=== PATIENT | male | born 1945 | race Caucasian/White ===

== ENCOUNTER 2024-01-12 11:39 | Emergency (ER) | payer OTHER ==
[2024-01-12 11:59] VITALS: TEMP 97.7
[2024-01-12] MEDS ORDERED: DUONEB 0.5-3 MG/3 ml Neb IH ONE (12:13)
[2024-01-12] MEDS: DUONEB 0.5-3 MG/3 ml Neb IH ONE (12:13)
--- NOTE | 2024-01-12 12:18 | ERPHSYRPT ---
- History of Present Illness Time Seen by Provider: 01/12/24 11:44 Source: patient, family Exam Limitations: no limitations Patient Subjective Stated Complaint: C/O SOB for months. States [facility] told him today to go to the ER for evaluation. Triage Nursing Assessment: Patient ambulated back to ER. He is alert and oriented. SOB noted with exertion. No cough. Skin tone normal. Trace edema BLE. SIM MIRANDA. Dr. Newell at bedside and assessed lung sounds. Physician History: 78 years old male with history of COPD, hypertension presented in the ER with increasing shortness of breath for the last 2 months. Patient reports having shortness of breath at baseline which is getting worse for the last couple of months initially with exertion and now gets short of breath even while talking. Patient reports he has to rest to catch his breath. Denies any chest tightness pressure or palpitations. No fever chills or cough reported. No history of coronary artery disease or congestive heart failure. Patient reports earlier he was having conversation with [facility] nurse and got really short winded, was recommended to be evaluated in the ER. Allergies/Adverse Reactions: No Known Drug Allergies Allergy (Verified 01/12/24 11:48) Home Medications: Unobtainable 01/12/24 [History] Hx Tetanus, Diphtheria Vaccination/Date Given: Yes Hx Influenza Vaccination/Date Given: Yes Hx Pneumococcal Vaccination/Date Given: Yes Immunizations Up to Date: Yes Travel Risk - International Travel Have you traveled outside of the country in past 3 weeks: No - Emerging Infectious Disease Are you exhibiting symptoms associated with any current EIDs: Yes Symptoms: Shortness of Breath - Review of Systems Constitutional: No Symptoms Eyes: No Symptoms Ears, Nose, & Throat: No Symptoms Respiratory: Dyspnea, Dyspnea on Exertion (GARCIA) Cardiac: No Symptoms Abdominal/Gastrointestinal: No Symptoms Genitourinary Symptoms: No Symptoms Skin: No Symptoms Neurological: No Symptoms Endocrine: No Symptoms Hematologic/Lymphatic: No Symptoms Immunological/Allergic: No Symptoms - Past Medical History Pertinent Past Medical History: Yes Cardiac History: Hypertension Respiratory History: Other Endocrine Medical History: Diabetes Type II History: Other Other Medical History: 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, urinary incontinence at times - Past Surgical History Past Surgical History: Yes Male Surgical History: Vasectomy - Social History Smoking Status: Never smoker Exposure to second hand smoke: No Drug Use: none - Social Determinants of Health Will the patient participate in the screening: Yes Do you worry about a steady place to live?: No Do you have any problems with any of the following?: No known problems In the past 12 months,have you had to go without utilities?: No Transportation Issues: No Has anyone in your support network made you feel unsafe?: No Have you or anyone in your house had to go without enough: No - Nursing Vital Signs Nursing Vital Signs: Initial Vital Signs Temperature 97.7 F 01/12/24 11:39 Pulse Rate 86 01/12/24 11:39 Respiratory Rate 22 01/12/24 11:39 Blood Pressure 176/85 01/12/24 11:39 O2 Sat by Pulse Oximetry 97 01/12/24 11:39 Pain Scale Pain Intensity 0 - Physical Exam General Appearance: no apparent distress, alert Eye Exam: PERRL/EOMI Ears, Nose, Throat Exam: hearing grossly normal, normal pharynx Neck Exam: normal inspection, full range of motion Respiratory Exam: normal breath sounds, lungs clear Cardiovascular/Chest Exam: normal heart sounds, regular rate/rhythm Abdominal/Gastrointestinal Exam: soft, normal bowel sounds, No tenderness Extremity Exam: non-tender, normal range of motion Neurologic Exam: alert, oriented x 3, cooperative, seo marketing specialist II-XII nml as tested Skin Exam: normal color SpO2 Interpretation: normal SpO2: 99 O2 Delivery: Room Air - Course EKG Interpreted by Me: RATE (72), Sinus Rhythm, Left [place] Deviation, NORMAL INTERVALS, Q-wave, Non-specific ST Changes Ordered Tests: Active Orders 24 hr Category Date Time Status Licensing Registration Examiner STAT Care 01/12/24 11:59 Active EKG-ER Only STAT Care 01/12/24 11:58 Active IV Insertion STAT Care 01/12/24 11:58 Active CHEST 1 VIEW (PORTABLE) Stat Exams 01/12/24 11:59 Completed BLOOD CULTURE Stat Lab 01/12/24 13:15 Received CBC W DIFF Stat Lab 01/12/24 12:05 Completed CMP Stat Lab 01/12/24 12:05 Completed D-DIMER QUANTITATIVE Stat Lab 01/12/24 12:05 Completed Lactic Acid Stat Lab 01/12/24 12:05 Completed MAGNESIUM Stat Lab 01/12/24 12:05 Completed NT PRO BNPII Stat Lab 01/12/24 12:05 Completed TROPONIN Q4H Lab 01/12/24 12:05 Completed TROPONIN Q4H Lab 01/12/24 16:00 Ordered TROPONIN Q4H Lab 01/12/24 20:00 Ordered Medication Summary Discontinued Medications Generic Name Dose Route Start Last Admin Trade Name Dione PRN Reason Stop Dose Admin Albuterol/Ipratropium 3 ml 01/12/24 11:58 01/12/24 12:13 Ipratropium/Albuterol Sulfate 3 Ml Ampul.Neb IH 01/12/24 11:59 3 ml STAT ONE Administration Albuterol/Ipratropium Confirm 01/12/24 12:13 Ipratropium/Albuterol Sulfate 3 Ml Ampul.Neb Administered 01/12/24 12:14 Dose 3 ml IH .STK-MED ONE Enoxaparin Sodium 40 mg 01/12/24 15:53 Enoxaparin Sodium 40 Mg/0.4 Ml Syringe SQ 01/12/24 15:54 1XONLY ONE Hydralazine HCl 10 mg 01/12/24 14:37 01/12/24 15:06 Hydralazine Hcl 20 Mg/Ml Vial IV 01/12/24 14:38 10 mg STAT ONE Administration Hydralazine HCl Confirm 01/12/24 15:04 Hydralazine Hcl 20 Mg/Ml Vial Administered 01/12/24 15:05 Dose 20 mg .ROUTE .STK-MED ONE Sodium Chloride 500 mls @ 500 mls/hr 01/12/24 13:30 01/12/24 15:09 Sodium Chloride 0.9% 500 Ml IV 01/12/24 14:29 Infused .Q1H ONE Infusion Sodium Chloride Confirm 01/12/24 13:52 Sodium Chloride 0.9% 500 Ml Administered 01/12/24 13:53 Dose 500 mls @ ud IV .STK-MED ONE Warfarin Sodium 5 mg 01/12/24 13:00 01/12/24 13:36 Warfarin Sodium 5 Mg Tablet PO 01/12/24 13:01 Not Given ONCE ONE Lab/Rad Data: Laboratory Result Diagrams 01/12/24 12:05 01/12/24 12:05 Laboratory Results 01/12/24 01/12/24 01/12/24 Range/Units 12:05 12:05 12:05 WBC (4.23-9.07) x10^3/uL RBC (4.63-6.08) x10^6/uL Hgb (13.7-17.5) g/dL Hct (40.1-51.0) % MCV (79.0-92.2) fL MCH (25.7-32.2) pg MCHC (32.3-36.5) g/dL RDW (11.6-14.4) % Plt Count (163-337) x10^3/uL MPV (9.4-12.4) fL Gran % (34.0-67.9) % Immature Gran % (Auto) (0.001-0.429) % Nucleat RBC Rel Count (0.00-0.2) % Eos # (Auto) (0.04-0.54) x10^3/uL Immature Gran # (Auto) (0.001-0.031) x10^3u/L Absolute Lymphs (auto) (1.32-3.57) x10^3/uL Absolute Monos (auto) (0.30-0.82) x10^3/uL Absolute Nucleated RBC (0.00-0.012) x10^3u/L Lymphocytes % (21.8-53.1) % Monocytes % (5.3-12.2) % Eosinophils % (0.8-7.0) % Basophils % (0.2-1.2) % Absolute Granulocytes (1.78-5.38) x10^3/uL Basophils # (0.01-0.08) x10^3/uL D-Dimer 1.55 H* (0.0-0.50) mg/L Sodium (135-145) mmol/L Potassium (3.5-5.1) mmol/L Chloride (98-107) mmol/L Carbon Dioxide (22-30) mmol/L Anion Gap (5-15) MEQ/L BUN (9-20) mg/dL Creatinine (0.66-1.25) mg/dL Estimated GFR ML/MIN Glucose (74-106) mg/dL Lactic Acid (0.4-2.0) Calcium (8.4-10.2) mg/dL Magnesium (1.6-2.3) mg/dL Total Bilirubin (0.2-1.3) mg/dL AST (17-59) U/L ALT (0-50) U/L Alkaline Phosphatase (38-126) U/L Troponin I < 0.012 (0.000-0.033) ng/mL NT-Pro-B Natriuret Pep 69.8 (<300) pg/mL Serum Total Protein (6.3-8.2) g/dL Albumin (3.5-5.0) g/dL 01/12/24 01/12/24 01/12/24 Range/Units 12:05 12:05 12:05 WBC 9.4 H (4.23-9.07) x10^3/uL RBC 4.62 L (4.63-6.08) x10^6/uL Hgb 14.0 (13.7-17.5) g/dL Hct 40.9 (40.1-51.0) % MCV 88.5 (79.0-92.2) fL MCH 30.3 (25.7-32.2) pg MCHC 34.2 (32.3-36.5) g/dL RDW 12.6 (11.6-14.4) % Plt Count 287 (163-337) x10^3/uL MPV 9.2 L (9.4-12.4) fL Gran % 54.5 (34.0-67.9) % Immature Gran % (Auto) 0.5 H (0.001-0.429) % Nucleat RBC Rel Count 0.0 (0.00-0.2) % Eos # (Auto) 0.26 (0.04-0.54) x10^3/uL Immature Gran # (Auto) 0.05 H (0.001-0.031) x10^3u/L Absolute Lymphs (auto) 3.13 (1.32-3.57) x10^3/uL Absolute Monos (auto) 0.73 (0.30-0.82) x10^3/uL Absolute Nucleated RBC 0.00 (0.00-0.012) x10^3u/L Lymphocytes % 33.3 (21.8-53.1) % Monocytes % 7.8 (5.3-12.2) % Eosinophils % 2.8 (0.8-7.0) % Basophils % 1.1 (0.2-1.2) % Absolute Granulocytes 5.12 (1.78-5.38) x10^3/uL Basophils # 0.10 H (0.01-0.08) x10^3/uL D-Dimer (0.0-0.50) mg/L Sodium 133 L (135-145) mmol/L Potassium 5.0 (3.5-5.1) mmol/L Chloride 102 (98-107) mmol/L Carbon Dioxide 21 L (22-30) mmol/L Anion Gap 14.5 (5-15) MEQ/L BUN 29 H (9-20) mg/dL Creatinine 1.49 H (0.66-1.25) mg/dL Estimated GFR 48.3 ML/MIN Glucose 377 H (74-106) mg/dL Lactic Acid 1.9 (0.4-2.0) Calcium 10.1 (8.4-10.2) mg/dL Magnesium 1.7 (1.6-2.3) mg/dL Total Bilirubin 0.60 (0.2-1.3) mg/dL AST 24 (17-59) U/L ALT 32 (0-50) U/L Alkaline Phosphatase 134 H (38-126) U/L Troponin I (0.000-0.033) ng/mL NT-Pro-B Natriuret Pep (<300) pg/mL Serum Total Protein 7.2 (6.3-8.2) g/dL Albumin 4.0 (3.5-5.0) g/dL - Progress Progress: improved, re-examined Air Movement: good Progress Note: 01/12/24 15:58 78-year-old is evaluated in the ER for worsening dyspnea for the last couple of months with no chest pain, cough fever or chills. Patient oxygen saturation is around 98% on room air but he has to pause while talking because of difficulty keeping up with his breathing. Patient EKG is sinus rhythm with no ST elevations. Negative initial troponins. Given neb treatment and gentle hydration, feeling better on reevaluation. Patient still gets short of breath by walking from bed to the bathroom. Normal white count, fairly unremarkable chemistries. Chest x-ray negative. Has elevated D-dimers but due to some technical issues with CT machine here at [facility] it cannot be performed. I have discussed the results of workup with patient and family and plan of transfer to another facility with CT services available. I have called [facility] where patient wanted to go but it is at full capacity and not accepting any transfers. I have discussed with Dr. Lamar ER physician at [facility], reviewed history, workup and agreed with transfer. He also recommended giving 40 mg subcu Lovenox and transfer to facility. Patient does not have any contraindications for anticoagulation. Blood Culture(s) Obtained: No Antibiotics given: No Counseled pt/family regarding: lab results, diagnosis, rad results Medical Desision Making - Discussion of managment Care discussed with:: on-call "doc" Reviewed:: Test results Agreed on:: Treatment plan Will see patient: in ED - Diagnostic Testing Diagnostic test were ordered, analyzed, and reviewed by me: Yes Radiological Interpretation: Reviewed by me - Risk of complications The pt has a mod risk of morbidity or mortality based on: Need for prescription drug management - Departure Departure Disposition: Transfer Clinical Impression: Dyspnea on exertion Condition: Stable Critical Care Time: No Referrals: [facility]OSP[facility],'S [Primary Care Provider] - Follow up/PCP as directed
[2024-01-12 12:26] LABS: Absolute Neutrophil Ct (ANC) 5.12 x10^3/uL (1.78-5.38); BASOPHIL % 1.1 % (0.2-1.2); Eosinophil % 2.8 % (0.8-7.0); Eosinophil (Absolute #) 0.26 x10^3/uL (0.04-0.54); Hematocrit 40.9 % (40.1-51.0); IMMATURE GRAN # 0.05 x10^3u/L (0.001-0.031); IMMATURE GRAN % 0.5 % (0.001-0.429); Lymphocyte (Absolute #) 3.13 x10^3/uL (1.32-3.57); Lymphocytes % 33.3 % (21.8-53.1); Mean Cell Volume 88.5 fL (79.0-92.2); Mean Corpuscular Hemoglobin 30.3 pg (25.7-32.2); Mean Corpuscular Hgb Concent. 34.2 g/dL (32.3-36.5); Mean Platelet Volume 9.2 fL (9.4-12.4); Monocyte (Absolute #) 0.73 x10^3/uL (0.30-0.82); Monocytes % 7.8 % (5.3-12.2); Neutrophil % 54.5 % (34.0-67.9); Platelet Count 287 x10^3/uL (163-337); Red Blood Count 4.62 x10^6/uL (4.63-6.08); Red Cell Distribution Width 12.6 % (11.6-14.4); White Blood Count 9.4 x10^3/uL (4.23-9.07)
[2024-01-12 12:38] LABS: ANION GAP 14.5 MEQ/L (5-15); BILIRUBIN,TOTAL 0.6 mg/dL (0.2-1.3); Calcium 10.1 mg/dL (8.4-10.2); Creatinine 1 1.49 mg/dL (0.66-1.25); EST GLOMERULAR FILTRATION RATE 48.3 ML/MIN; MAGNESIUM 1.7 mg/dL (1.6-2.3); Total Protein 7.2 g/dL (6.3-8.2)
--- NOTE | 2024-01-12 13:00 | XRAY ---
Indication: Short of breath. Comparison: None Portable chest rotated. Lungs inflated and clear. Heart not enlarged for AP portable technique. Bony thorax intact with osteopenia, mild degenerative changes, and mild levoscoliosis. Impression: Nonacute chest with chronic bony findings.
[2024-01-12] MEDS: COUMADIN PO ONE (13:36)
[2024-01-12] MEDS ORDERED: Sodium Chloride 0.9% 500 ML 500 ML IV ONE (13:52)
[2024-01-12] MEDS: Sodium Chloride 0.9% 500 ML 500 ML IV ONE (13:53)
[2024-01-12] MEDS ORDERED: APRESOLINE 20 MG/ML INJ ONE (15:04)
[2024-01-12] MEDS: APRESOLINE 20 MG/ML INJ IV ONE (15:06)
[2024-01-12] MEDS: ENOXAPARIN SODIUM SQ ONE (16:08)
[2024-01-12] MEDS ORDERED: ENOXAPARIN SODIUM SQ ONE (16:08)
[2024-01-12 17:19] VITALS: BP 173/85; PULSE 61; RESP 18; O2SAT 100
== END 2024-01-12 18:38 | disposition short-term general hospital (02) ==
LOC: ED 11:39
DX: R06.09 Other forms of dyspnea (principal); R79.1 Abnormal coagulation profile; R06.02 Shortness of breath; I10 Essential (primary) hypertension; E11.9 Type 2 diabetes mellitus without complications
CPT/HCPCS: 36000; 36415; 71045; 80053; 83605; 83735; 83880; 84484; 85025; 85379; 87040; 93005; 93041; 94640; 96372; 96374; 99285; J0360; J1650; A9270-GY

== ENCOUNTER 2024-10-13 12:05 | Emergency (ER) | payer OTHER ==
--- NOTE | 2024-10-13 12:21 | ERPHSYRPT ---
- History of Present Illness Source: patient Exam Limitations: no limitations Physician History: Patient's had cough and congestion for about 5 days. It seems to be getting worse. He says he is getting a bit short of breath on exertion. He has not had any chest pain. 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 He had been healing well but then this came on. He had a chest x-ray done 3 to 4 days ago. They did not have any findings on it at that time.This is according to the patient. He presented today because of the symptoms are worsening.He denies any fever. The cough is loose but it has not produce a lot of sputum. He could not characterize it. Allergies/Adverse Reactions: No Known Drug Allergies Allergy (Verified 10/13/24 12:08) Home Medications: Aspirin EC 81 mg [Ecotrin 81 mg] 81 mg PO DAILY 10/13/24 [History] Ertugliflozin Pidolate [Steglatro] 15 mg PO DAILY 10/13/24 [History] Insulin Aspart [Novolog] 12 unit SQ AC 10/13/24 [History] Insulin Glargine [Lantus Insulin] 40 unit SQ HS 10/13/24 [History] Metoprolol Tartrate 25 mg [Lopressor 25MG Tab] 25 mg PO BID 10/13/24 [History] Pantoprazole Sodium [Protonix] 40 mg PO BID 10/13/24 [History] Primidone 50 MG [Mysoline 50Mg] 50 mg PO BID 10/13/24 [History] Rosuvastatin Calcium [Crestor] 5 mg PO EVENING MEAL 10/13/24 [History] SITagliptin [Sitagliptin] 100 mg PO DAILY 10/13/24 [History] Hx Tetanus, Diphtheria Vaccination/Date Given: Yes Hx Influenza Vaccination/Date Given: Yes Hx Pneumococcal Vaccination/Date Given: Yes Travel Risk - Emerging Infectious Disease Are you exhibiting symptoms associated with any current EIDs: Yes Symptoms: Shortness of Breath - Review of Systems Constitutional: Fatigue, No Fever, No Chills Eyes: No Symptoms Ears, Nose, & Throat: No Symptoms Respiratory: Cough, Dyspnea on Exertion (GARCIA) Cardiac: No Symptoms Abdominal/Gastrointestinal: No Symptoms All Other Systems: Reviewed and Negative - Past Medical History Pertinent Past Medical History: Yes Cardiac History: Hypertension Respiratory History: Other Endocrine Medical History: Diabetes Type II History: Other Other Medical History: 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, urinary incontinence at times - Past Surgical History Past Surgical History: Yes Male Surgical History: Vasectomy - Social History Smoking Status: Never smoker Exposure to second hand smoke: No Drug Use: none - Social Determinants of Health Will the patient participate in the screening: Yes Do you worry about a steady place to live?: No In the past 12 months,have you had to go without utilities?: No Transportation Issues: No Has anyone in your support network made you feel unsafe?: No Have you or anyone in your house had to go w/o enough food: No - Nursing Vital Signs Nursing Vital Signs: Initial Vital Signs Temperature 98.6 F 10/13/24 12:10 Pulse Rate 88 10/13/24 12:10 Respiratory Rate 12 10/13/24 12:10 Blood Pressure 166/81 10/13/24 12:10 O2 Sat by Pulse Oximetry 97 10/13/24 12:10 Pain Scale Pain Intensity 0 - Physical Exam General Appearance: no apparent distress Eye Exam: PERRL/EOMI Ears, Nose, Throat Exam: hearing grossly normal Neck Exam: normal inspection Respiratory Exam: diminished breath sounds, other (Patient has wet lung sounds on the left greater than the right. He goes about two th[address] the way up the left lung. He has some crackles in the bases on the right. He has diminished breath sounds bilaterally and decreased air movement.) Cardiovascular/Chest Exam: normal heart sounds Abdominal/Gastrointestinal Exam: soft, normal bowel sounds, No tenderness, No distention Extremity Exam: non-tender Neurologic Exam: alert, oriented x 3 Skin Exam: normal color, warm SpO2 Interpretation: normal - Course Nursing assessment & vital signs reviewed: Yes EKG Interpreted by Me: RATE, Sinus Rhythm, NORMAL AXIS, NORMAL INTERVALS, NORMAL QRS Ordered Tests: Active Orders 24 hr Category Date Time Status Inspector Air Carrier STAT Care 10/13/24 12:22 Active EKG-ER Only STAT Care 10/13/24 12:21 Active IV Insertion STAT Care 10/13/24 12:21 Active Oxygen-ED Only Nasal Cannula 2 lpm Care 10/13/24 12:21 Active CHEST 1 VIEW (PORTABLE) Stat Exams 10/13/24 12:22 Taken BLOOD CULTURE Stat Lab 10/13/24 12:42 Received CBC W DIFF Stat Lab 10/13/24 12:51 Completed CMP Stat Lab 10/13/24 12:51 Completed Lactic Acid Stat Lab 10/13/24 12:21 Completed NT PRO BNPII Stat Lab 10/13/24 12:51 Completed PROCALCITONIN Stat Lab 10/13/24 12:51 Completed TROPONIN Q4H Lab 10/13/24 12:23 Completed TROPONIN Q4H Lab 10/13/24 18:00 Ordered TROPONIN Q4H Lab 10/13/24 22:00 Ordered VENOUS BLOOD GAS Stat Lab 10/13/24 12:21 Completed Medication Summary Generic Name Dose Route Start Last Admin Trade Name Freq PRN Reason Stop Dose Admin Sodium Chloride 1,000 mls @ 100 mls/hr 10/13/24 12:30 10/13/24 12:35 Sodium Chloride 0.9% 1000 Ml IV 11/12/24 12:29 100 mls/hr .Q10H PEBBLES Administration Discontinued Medications Generic Name Dose Route Start Last Admin Trade Name Freq PRN Reason Stop Dose Admin Furosemide 40 mg 10/13/24 15:42 10/13/24 15:49 Furosemide 40 Mg/4 Ml Vial IV 10/13/24 15:43 40 mg STAT ONE Administration Furosemide Confirm 10/13/24 15:48 Furosemide 40 Mg/4 Ml Vial Administered 10/13/24 15:49 Dose 40 mg .ROUTE .STK-MED ONE Lab/Rad Data: Laboratory Result Diagrams 10/13/24 12:51 10/13/24 12:51 Laboratory Results 10/13/24 10/13/24 10/13/24 Range/Units 12:51 12:51 12:51 WBC 12.8 H (4.23-9.07) x10^3/uL RBC 3.89 L (4.63-6.08) x10^6/uL Hgb 11.3 L (13.7-17.5) g/dL Hct 36.6 L (40.1-51.0) % MCV 94.1 H (79.0-92.2) fL MCH 29.0 (25.7-32.2) pg MCHC 30.9 L (32.3-36.5) g/dL RDW 14.0 (11.6-14.4) % Plt Count 435 H (163-337) x10^3/uL MPV 8.2 L (9.4-12.4) fL Gran % 79.6 H (34.0-67.9) % Immature Gran % (Auto) 0.5 H (0.001-0.429) % Nucleat RBC Rel Count 0.0 (0.00-0.2) % Eos # (Auto) 0.07 (0.04-0.54) x10^3/uL Immature Gran # (Auto) 0.07 H (0.001-0.031) x10^3u/L Absolute Lymphs (auto) 1.32 (1.32-3.57) x10^3/uL Absolute Monos (auto) 1.13 H (0.30-0.82) x10^3/uL Absolute Nucleated RBC 0.00 (0.00-0.012) x10^3u/L Lymphocytes % 10.3 L (21.8-53.1) % Monocytes % 8.8 (5.3-12.2) % Eosinophils % 0.5 L (0.8-7.0) % Basophils % 0.3 (0.2-1.2) % Absolute Granulocytes 10.20 H (1.78-5.38) x10^3/uL Basophils # 0.04 (0.01-0.08) x10^3/uL pO2/FiO2 Ratio % VBG pH (7.32-7.42) VBG pCO2 at Pat Temp (42-55) mm/Hg VBG pO2 at Pat Temp (25-40) mm/Hg VBG HCO3 (22-28) meq/L VBG O2 Sat (Patricia) (95-100) VBG Base Excess (-2.0-2.0) VBG Hemoglobin VBG Carboxyhemoglobin (0.0-6.9) % T HGB POC Potassium (3.5-5.1) Sodium 135 (135-145) mmol/L Potassium 4.4 (3.5-5.1) mmol/L Chloride 102 (98-107) mmol/L Carbon Dioxide 20 L (22-30) mmol/L Anion Gap 17.6 H (5-15) MEQ/L BUN 21 H (9-20) mg/dL Creatinine 1.43 H (0.66-1.25) mg/dL Estimated GFR 50.5 ML/MIN Glucose 151 H (74-106) mg/dL Lactic Acid (0.4-2.0) Calcium 9.7 (8.4-10.2) mg/dL Total Bilirubin 0.50 (0.2-1.3) mg/dL AST 25 (17-59) U/L ALT 25 (0-50) U/L Alkaline Phosphatase 113 (38-126) U/L Troponin I (0.000-0.033) ng/mL NT-Pro-B Natriuret Pep 893 (<300) pg/mL Serum Total Protein 6.6 (6.3-8.2) g/dL Albumin 3.5 (3.5-5.0) g/dL Procalcitonin 0.153 H (0.030-0.080) ng/mL 10/13/24 10/13/24 Range/Units 12:23 12:21 WBC (4.23-9.07) x10^3/uL RBC (4.63-6.08) x10^6/uL Hgb (13.7-17.5) g/dL Hct (40.1-51.0) % MCV (79.0-92.2) fL MCH (25.7-32.2) pg MCHC (32.3-36.5) g/dL RDW (11.6-14.4) % Plt Count (163-337) x10^3/uL MPV (9.4-12.4) fL Gran % (34.0-67.9) % Immature Gran % (Auto) (0.001-0.429) % Nucleat RBC Rel Count (0.00-0.2) % Eos # (Auto) (0.04-0.54) x10^3/uL Immature Gran # (Auto) (0.001-0.031) x10^3u/L Absolute Lymphs (auto) (1.32-3.57) x10^3/uL Absolute Monos (auto) (0.30-0.82) x10^3/uL Absolute Nucleated RBC (0.00-0.012) x10^3u/L Lymphocytes % (21.8-53.1) % Monocytes % (5.3-12.2) % Eosinophils % (0.8-7.0) % Basophils % (0.2-1.2) % Absolute Granulocytes (1.78-5.38) x10^3/uL Basophils # (0.01-0.08) x10^3/uL pO2/FiO2 Ratio 28.0 % VBG pH 7.44 H (7.32-7.42) VBG pCO2 at Pat Temp 31 L (42-55) mm/Hg VBG pO2 at Pat Temp 42 H (25-40) mm/Hg VBG HCO3 21.1 L (22-28) meq/L VBG O2 Sat (Patricia) 72.2 L (95-100) VBG Base Excess -2.3 L (-2.0-2.0) VBG Hemoglobin 12.0 VBG Carboxyhemoglobin 4.9 (0.0-6.9) % T HGB POC Potassium 4.4 (3.5-5.1) Sodium (135-145) mmol/L Potassium (3.5-5.1) mmol/L Chloride (98-107) mmol/L Carbon Dioxide (22-30) mmol/L Anion Gap (5-15) MEQ/L BUN (9-20) mg/dL Creatinine (0.66-1.25) mg/dL Estimated GFR ML/MIN Glucose (74-106) mg/dL Lactic Acid 1.3 (0.4-2.0) Calcium (8.4-10.2) mg/dL Total Bilirubin (0.2-1.3) mg/dL AST (17-59) U/L ALT (0-50) U/L Alkaline Phosphatase (38-126) U/L Troponin I < 0.012 (0.000-0.033) ng/mL NT-Pro-B Natriuret Pep (<300) pg/mL Serum Total Protein (6.3-8.2) g/dL Albumin (3.5-5.0) g/dL Procalcitonin (0.030-0.080) ng/mL - Progress Progress: unchanged Air Movement: fair Progress Note: On the differential was coronary vascular event, CHF, pneumonia, RSV, flu, COVID. On the physical exam it said more like CHF. I got an x-ray that showed CHF. He had an elevated BNP was almost 900. His troponin was not elevated. Chemistries and CBC were essentially within normal limits. The patient stable on room air. He satting around 95. He is not in respiratory distress.He does get dyspneic whenever he exerts himself however. He is still denying any chest pain. I think the patient needs to be admitted. I went to start him on Lasix and called the [facility].The MA excepted. We are going to transfer him. The patient is very stable right now. If he still here we will get a repeat troponin at the 4-hour ade. 10/13/24 14:24. 10/13/24 16:15 Blood Culture(s) Obtained: Yes Antibiotics given: No Medical Desision Making - Diagnostic Testing Diagnostic test were ordered, analyzed, and reviewed by me: Yes Radiological Interpretation: Interpreted by me - Risk of complications The pt has a mod risk of morbidity or mortality based on: Need for prescription drug management - Departure Departure Disposition: Transfer Clinical Impression: New onset of congestive heart failure Condition: Good Critical Care Time: No Referrals: [facility]OSP[facility],'S [Primary Care Provider, UNKNOWN] - Follow up/PCP as directed Instructions: Heart Failure
[2024-10-13 12:26] VITALS: TEMP 98.6
[2024-10-13] MEDS ORDERED: Sodium Chloride 0.9% 1000 ML 1,000 ML ONE (12:33)
[2024-10-13] MEDS: Sodium Chloride 0.9% 1000 ML 1,000 ML IV SCH (12:35)
[2024-10-13 12:51] LABS: BASOPHIL % 0.3 % (0.2-1.2); Basophil (Absolute #) 0.04 x10^3/uL (0.01-0.08); Eosinophil % 0.5 % (0.8-7.0); Eosinophil (Absolute #) 0.07 x10^3/uL (0.04-0.54); Hematocrit 36.6 % (40.1-51.0); Hemoglobin 11.3 g/dL (13.7-17.5); IMMATURE GRAN # 0.07 x10^3u/L (0.001-0.031); IMMATURE GRAN % 0.5 % (0.001-0.429); Lymphocyte (Absolute #) 1.32 x10^3/uL (1.32-3.57); Lymphocytes % 10.3 % (21.8-53.1); Mean Cell Volume 94.1 fL (79.0-92.2); Mean Corpuscular Hgb Concent. 30.9 g/dL (32.3-36.5); Mean Platelet Volume 8.2 fL (9.4-12.4); Monocyte (Absolute #) 1.13 x10^3/uL (0.30-0.82); Monocytes % 8.8 % (5.3-12.2); Neutrophil % 79.6 % (34.0-67.9); Platelet Count 435 x10^3/uL (163-337); Red Blood Count 3.89 x10^6/uL (4.63-6.08); White Blood Count 12.8 x10^3/uL (4.23-9.07)
[2024-10-13 12:57] LABS: Lactic Acid 1.3 (0.4-2.0); VBG BASE EXCESS -2.3 (-2.0-2.0); VBG CARBOXYHEMOGLOBIN 4.9 % T HGB (0.0-6.9); VBG HCO3- 21.1 meq/L (22-28); VBG O2 SATURATION 72.2 (95-100); VBG POTASSIUM 4.4 (3.5-5.1); VBG pH 7.44 (7.32-7.42)
[2024-10-13 13:06] LABS: ALBUMIN 3.5 g/dL (3.5-5.0); ANION GAP 17.6 MEQ/L (5-15); BILIRUBIN,TOTAL 0.5 mg/dL (0.2-1.3); Calcium 9.7 mg/dL (8.4-10.2); Creatinine 1 1.43 mg/dL (0.66-1.25); EST GLOMERULAR FILTRATION RATE 50.5 ML/MIN; Potassium 4.4 mmol/L (3.5-5.1); Total Protein 6.6 g/dL (6.3-8.2)
[2024-10-13 13:23] LABS: PROCALCITONIN 0.153 ng/mL (0.030-0.080)
[2024-10-13] MEDS ORDERED: Lasix 40 MG/4 ML ONE (15:48)
[2024-10-13] MEDS: Lasix 40 MG/4 ML IV ONE (15:49)
[2024-10-13 19:21] VITALS: O2SAT 95
[2024-10-13 20:02] VITALS: BP 172/90; PULSE 88; RESP 20
--- NOTE | 2024-10-13 23:30 | XRAY ---
Indication: Cough. Comparison: January 12, 2024 Portable chest again demonstrates minimal left base subsegmental atelectasis/scarring. No focal infiltrate, consolidation, or large effusion. Heart borderline enlarged. Bony thorax intact again with osteopenia and degenerative changes. New sternotomy wires. No acute findings.
== END 2024-10-13 20:40 | disposition short-term general hospital (02) ==
LOC: ED 12:05
DX: I11.0 Hypertensive heart disease with heart failure (principal); I50.9 Heart failure, unspecified; R05.1 Acute cough; R06.02 Shortness of breath; E11.9 Type 2 diabetes mellitus without complications; Z79.4 Long term (current) use of insulin; Z79.84 Long term (current) use of oral hypoglycemic drugs; Z79.899 Other long term (current) drug therapy
CPT/HCPCS: 36415; 71045; 80053; 82805; 83605; 83880; 84145; 84484; 85025; 87040; 93005; 93041; 96374; 99285; J1938